=== PATIENT | female | born 2000 | race Caucasian/White ===

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

== ENCOUNTER → 2019-01-25 08:36 | Outpatient (CLI) | payer MEDICAID, SELFPAY ==
--- NOTE | 2019-01-25 08:45 | FL_ITS ---
FL enema w gastrografin CLINICAL INDICATION: Evaluate anatomy of the large bowel for possible colostomy ITS.REASON: SMALL BOWEL OBSTRUCTION ORDERING PHYSICIAN: Triston Shanks MD PATIENT AGE: 18 years Comparison: None Fluoroscopy time: 3 minutes and 29 seconds FINDINGS: Manager Dialysis exam demonstrates confusion, overlying the right lower quadrant. There is gaseous distention of large bowel. Enterostomy tube is present in the left upper quadrant. Gastrografin enema is performed. There is a moderate amount retained colonic feces in the right colon. No annular constricting lesions are evident. No anatomic variants are apparent. The appendix didn't fill. Atelectasis not readily identified. IMPRESSION: Moderate amount retained colonic feces otherwise unremarkable Gastrografin enema
== END ==
PROVIDERS: PCP Internal Medicine Adolescent Medicine; Visit Provider Surgery
DX: K56.609 Unspecified intestinal obstruction, unspecified as to partial versus complete obstruction (principal)
CPT/HCPCS: 74270

== ENCOUNTER → 2019-04-10 18:59 | Outpatient (CLI) | payer MEDICAID, SELFPAY ==
[2019-04-10 19:10] LABS: Adenovirus,PCR Not Detected (NotDetected); Bordetella Pertussis Not Detected (NotDetected); Chlamydophila Pneumoniae, PCR Not Detected (NotDetected); Coronavirus 229E Not Detected (NotDetected); Coronavirus NL63 Not Detected (NotDetected); Coronavirus OC43 Not Detected (NotDetected); Coronovirus HKU1,PCR Not Detected (NotDetected); Human Metapneumovirus Not Detected (NotDetected); Influenza A, PCR Not Detected (NotDetected); Influenza AH1, 2009 Not Detected (NotDetected); Influenza AH1, PCR Not Detected (NotDetected); Influenza AH3,PCR Not Detected (NotDetected); Influenza B, PCR Not Detected (NotDetected); Mycoplasma Pneumoniae, PCR Not Detected (NotDetected); Parainfluenza 1, PCR Not Detected (NotDetected); Parainfluenza 2, PCR Not Detected (NotDetected); Parainfluenza 3, PCR Not Detected (NotDetected); Parainfluenza 4, PCR Not Detected (NotDetected); Respiratory Syncytial Virus Not Detected (NotDetected)
[2019-04-10 20:37] LABS: Rhinovirus/Enterovirus Detected (NotDetected)
== END ==
PROVIDERS: PCP Nurse Practitioner Family; Visit Provider Nurse Practitioner Family
DX: R50.9 Fever, unspecified (principal); R05 Cough
CPT/HCPCS: 87486; 87581; 87633; 87798

== ENCOUNTER → 2019-07-27 07:38 | Outpatient (CLI) | payer MEDICAID, SELFPAY ==
[2019-07-27 07:44] LABS: Microscopic, Urine URINE MICROSCOPIC (MICROSCOPIC)
[2019-07-27 08:48] LABS: Appearance,Urine CLEAR (Clear); Bilirubin,Urine Negative (Negative); Blood, Urine 3+ (Negative); Color,Urine YELLOW (Yellow); Glucose,Urine (UA) Negative (Negative); Ketones,Urine Negative (Negative); Leukocyte Esterase,Urine 2+ (Negative); Nitrate,Urine POSITIVE (Negative); Protein,Urine 2+ (Negative); Specific Gravity, Urine 1.025 (1.005-1.030); Urobilinogen,Urine 0.2 EU/dl (0.2)
[2019-07-27 09:05] LABS: WBC,Urine 20-50 #/hpf (0-3)
[2019-07-27 09:06] LABS: Bacteria,Urine 3+ /lpf
== END ==
PROVIDERS: Visit Provider Nurse Practitioner Family
DX: N31.9 Neuromuscular dysfunction of bladder, unspecified (principal); R50.9 Fever, unspecified
CPT/HCPCS: 81001; 87086; 87088; 87186

== ENCOUNTER → 2020-05-03 08:04 | Outpatient (CLI) | payer MEDICAID, SELFPAY ==
--- NOTE | 2020-05-03 08:14 | XR_ITS ---
PROCEDURE: XR KUB CLINICAL INDICATION: CONSTIPATION COMPARISON: BEG FL enema w gastrografin from 01/25/2019 FINDINGS: There is lumbar scoliosis convex right. Pain pump overlies the right lower quadrant. Bowel gas pattern is nonspecific with gas-filled loops of small and large bowel. Suture line is present in the right mid abdominal region. There is a thin linear metallic density in the left mid abdominal area. There is increased soft tissue density overlying the pelvis and may be related to distended urinary bladder. Left lower quadrant ostomy is noted IMPRESSION: Scoliosis with nonspecific bowel gas pattern Dictated by: Yousuf Nguyen MD 05/03/2020 15:13 Electronically signed by Yousuf Nguyen MD in [place] 05/03/2020 15:13
== END ==
PROVIDERS: PCP Internal Medicine Adolescent Medicine; Visit Provider Surgery
DX: K59.00 Constipation, unspecified (principal)
CPT/HCPCS: 74018

== ENCOUNTER 2020-08-24 18:32 | Inpatient (IN) | payer MEDICAID, SELFPAY ==
[2020-08-24] VITALS (8 sets, daily range): BP systolic 89–128; BP diastolic 54–78; PULSE 88–129; RESP 16–19; TEMP 36.7–38.3; O2SAT 93–96; BMI 18.4
[2020-08-24 19:32] LABS: Basophils # 0.1 K/mm3 (0-0.2); Basophils % 1.4 % (0.1-2.0); Eosinophils % 0.3 % (0.1-12.0); Hematocrit 45.9 % (37.0-47.0); Hemoglobin 15.1 g/dL (12.2-16.2); Lymphocytes # 0.9 K/mm3 (0.7-4.5); Lymphocytes % 11.4 % (10-50); Mean Corpuscular HGB Conc 32.8 g/dL (31.8-35.4); Mean Corpuscular Hemoglobin 29.2 pg (27.0-31.2); Mean Corpuscular Volume 88.9 fl (81-99); Mean Platelet Volume 9.5 fl (7.4-10.4); Monocytes # 0.8 K/mm3 (0.1-1.0); Monocytes % 10.4 % (1.7-9.3); Neutrophils # 5.8 K/mm3 (1.8-7.8); Neutrophils % 76.6 % (37.0-80.0); Platelet Count 185 K/mm3 (142-424); Red Blood Count 5.16 M/mm3 (4.20-5.40); Red Cell Distribution Width 14.4 % (11.5-17.5); White Blood Count 7.5 K/mm3 (4.8-10.8)
--- NOTE | 2020-08-24 19:32 | XR_ITS ---
PROCEDURE: XR CHEST PORTABLE Referring Doctor: Stone Ibrahim Patient Age:20Y CLINICAL HISTORY: cough patient diagnosed with covid, a few days ago and has been vomiting. Mother questions that she may have aspirated vomitus COMPARISON: CR CXR CHEST(2 VIEWS-NOT PORTABLE) from 06/06/2015 CR CXR1 CHEST-PORTABLE from 09/23/2015 CR CXR2V XR chest 2V from 10/17/2018 FINDINGS: AP portable semi-erect chest performed today and compared to October 2018 CXr two-view. The patient has a diffuse gradual dextroscoliosis through the thoracic spine and into the lumbar spine which is somewhat distorts the chest and dimensions the volume of the left hemithorax. Airspace disease medial left base.: Minimal infiltrate and atelectasis at the left lung base,, retrocardiac region. The infiltrate likely extends from the left infrahilar region towards medial left base. But does not significantly obscure the left hemidiaphragm I would note the patient has had chronic changes and some scarring in this area in the past but I am suspect of minimal additional infiltrate currently medial left base left upper lung field appears clear. Suspect subtle infiltrate at the medial right lung base as well. Appearance today is unchanged since previous studies . A prominent gastric bubble with slight elevation left hemidiaphragm reflecting the additional atelectasis at the left lung base today IMPRESSION: bibasilar infiltrate and atelectasis Minimal infiltrate medial right lung base Infiltrate and atelectasis and scarring at the medial left lung base the Dictated by: Percy Ruiz MD 08/24/2020 21:58 Percy Ruiz MD in [place] 08/24/2020 21:58
[2020-08-24 19:37] LABS: Alanine Aminotransferase 72 U/L (12-78); Albumin Level 4.8 g/dl (3.5-5.0); Albumin/Globulin Ratio 1.3 (1.1-1.8); Alkaline Phosphatase 77 U/L (38-126); Anion Gap 15.2 mEq/L (5-15); Aspartate Amino Transferase 35 U/L (14-36); Bilirubin,Total 0.6 mg/dl (0.2-1.3); Blood Urea Nitrogen 14 mg/dl (7-17); Calcium 9.8 mg/dl (8.4-10.2); Carbon Dioxide 28 mmol/L (22.0-30.0); Chloride 99 mmol/L (98-107); Creatinine Clearance Estimated 159 mL/min (50-200); Estimated Glomerular Filt Rate 156 ml/min (>60); GFR (African American) 188 ML/MIN (>60); Globulin 3.7 g/dL (1.3-3.2); Glucose 117 mg/dl (74-100); Potassium 4.2 mmoL/L (3.5-5.1); Sodium 138 mmol/L (136-145); Total Protein,Serum 8.5 g/dl (6.3-8.2)
[2020-08-24 19:47] LABS: Microscopic, Urine URINE MICROSCOPIC (MICROSCOPIC)
--- NOTE | 2020-08-24 19:53 | HMH.EDGENADL ---
ED Disposition Clinical Impression: Pneumonia Disposition: Admitted As Inpatient Condition on Discharge: Serious Instructions: DI for Diarrhea and Traveler's Diarrhea -- Adult, DI for Diarrhea and Traveler's Diarrhea -- Child, DI for Nausea -- Adult, DI for Nausea -- Child Referrals: Mike Welsh MD [Primary Care Provider] - - Critical Care Critical Care Time: No Attestation: On 08/24/20, the high probability of a clinically significant, sudden or life threatening deterioration of the following system(s) required my full and direct attention, intervention and personal management. The time I documented below is in addition to time spent performing reported procedures but includes the following listed in this critical care notation. Medical Decision Making - Medical Records Medical records reviewed: Yes: I reviewed the patient's medical records. - [place] Inquiry Pt receiving controlled substance: No Vital Signs: 08/24/20 18:32 Temperature 100.9 F H Temperature Source Axillary Pulse Rate [Left Radial] 129 H Respiratory Rate 19 Blood Pressure [Right Arm] 128/78 Blood Pressure Mean [Right Arm] 94 Blood Pressure Source [Right Arm] Automatic Cuff Blood Pressure Position [Right Arm] Sitting 02 Sat by Pulse Oximetry 96 Oxygen Delivery Method Room Air - Lab Data Lab Results 08/24/20 19:00: WBC 7.5, RBC 5.16, Hgb 15.1, Hct 45.9, MCV 88.9, MCH 29.2, MCHC 32.8, RDW 14.4, Plt Count 185, MPV 9.5, Neut % (Auto) 76.6, Lymph % (Auto) 11.4, [place] % (Auto) 10.4 H, Eos % (Auto) 0.3, Baso % (Auto) 1.4, Neut # (Auto) 5.8, Lymph # (Auto) 0.9, [place] # (Auto) 0.8, Eos # (Auto) 0.0, Baso # (Auto) 0.1 08/24/20 19:00: Sodium 138, Potassium 4.2, Chloride 99, Carbon Dioxide 28, Anion Gap 15.2 H, BUN 14, Creatinine 0.50 L, Estimated Creat Clear 159, Estimated GFR 156, Est GFR ( Amer) 188, Glucose 117 H, Calcium 9.8, Total Bilirubin 0.6, AST 35, ALT 72, Alkaline Phosphatase 77, Total Protein 8.5 H, Albumin 4.8, Globulin 3.7 H, Albumin/Globulin Ratio 1.3, HCG, Quant < 2 08/24/20 19:43: Urine Color Yellow, Urine Appearance Clear, Urine pH 7.0, Ur Specific [place] 1.020, Urine Protein Negative, Urine Glucose (UA) Negative, Urine Ketones Negative, Urine Blood Negative, Urine Nitrate Negative, Urine Bilirubin Negative, Urine Urobilinogen 0.2, Ur Leukocyte Esterase Negative, Urine RBC Occasional, Urine WBC 3-5, Ur Squamous Epith Cells 5-10, Urine Mucus 4+ Result diagrams: 08/24/20 19:00 08/24/20 19:00 Orders (Tests/Meds): ED MEDICATIONS Generic Name Dose Route Start Last Admin Trade Name Freq PRN Reason Stop Dose Admin Azithromycin 500 mg/ Sodium 250 mls @ 250 mls/hr 08/24/20 20:00 08/24/20 20:01 Chloride IV 09/07/20 19:59 250 mls/hr Q24H SVETLANA Administration Protocol Ceftriaxone Sodium 1 gm/ 50 mls @ 100 mls/hr 08/24/20 20:00 08/24/20 20:01 Sodium Chloride IV 09/07/20 19:59 100 mls/hr Q24H SVETLANA Administration Protocol Discontinued Medications Generic Name Dose Route Start Last Admin Trade Name Freq PRN Reason Stop Dose Admin Acetaminophen 1,000 mg 08/24/20 18:56 08/24/20 19:32 Acetaminophen 500mg Tab PO 08/24/20 18:57 1,000 mg ONCE ONE Administration Ibuprofen 400 mg 08/24/20 18:56 08/24/20 19:32 Ibuprofen 400 Mg Tablet PO 08/24/20 18:57 400 mg ONCE ONE Administration Ondansetron HCl 4 mg 08/24/20 19:52 08/24/20 19:59 Ondansetron 4mg/2ml Vial IV 08/24/20 19:53 4 mg ONCE ONE Administration ORDERS Category Date Time Status CXR --portable [XR chest portable] Stat Exams 08/24/20 19:32 Taken Full Resp Panel w/COVID ([facility]) Routine Lab 08/24/20 19:00 Received Blood Culture Stat Micro 08/24/20 19:29 Ordered Medical Decision Narrative: Patient is a 20-year-old female with significant TBI presents the emergency department today with vomiting and fever. Belly soft. Given multiple Covid positive sick contacts at home this is the most likely etiology. P
[2020-08-24 20:01] LABS: HCG,Quantitative < 2 mIU/ml (0-5.42)
[2020-08-24 20:04] LABS: Appearance,Urine CLEAR (Clear); Bilirubin,Urine Negative (Negative); Blood, Urine Negative (Negative); Color,Urine YELLOW (Yellow); Glucose,Urine (UA) Negative (Negative); Ketones,Urine Negative (Negative); Leukocyte Esterase,Urine Negative (Negative); Nitrate,Urine Negative (Negative); Protein,Urine Negative (Negative); Urobilinogen,Urine 0.2 EU/dl (0.2)
[2020-08-24 20:06] LABS: Mucus,Urine 4+ /lpf; RBC,Urine Occasional #/hpf (0-3)
[2020-08-24 21:02] LABS: Coronavirus 19, PCR Detected (NotDetected)
[2020-08-24 22:22] LABS: Adenovirus,PCR Not Detected (NotDetected); Coronavirus NL63 Not Detected (NotDetected); Coronovirus HKU1,PCR Not Detected (NotDetected)
[2020-08-24 22:23] LABS: Bordetella Pertussis Not Detected (NotDetected); Chlamydophila Pneumoniae, PCR Not Detected (NotDetected); Coronavirus 229E Not Detected (NotDetected); Coronavirus OC43 Not Detected (NotDetected); Human Metapneumovirus Not Detected (NotDetected); Influenza A, PCR Not Detected (NotDetected); Influenza AH1, 2009 Not Detected (NotDetected); Influenza AH1, PCR Not Detected (NotDetected); Influenza AH3,PCR Not Detected (NotDetected); Influenza B, PCR Not Detected (NotDetected); Parainfluenza 1, PCR Not Detected (NotDetected); Parainfluenza 2, PCR Not Detected (NotDetected); Parainfluenza 3, PCR Not Detected (NotDetected); Parainfluenza 4, PCR Not Detected (NotDetected); Respiratory Syncytial Virus Not Detected (NotDetected); Rhinovirus/Enterovirus Not Detected (NotDetected)
--- NOTE | 2020-08-25 03:48 | PC.NURSE ---
Pt admitted this shit. Pt has slept well since admission. No nonverbal s/sx of soa/pain/distress noted. No vomiting. Colostomy emptied with 70 ml of liquid stool noted. Lactated Ringers continue at 95 ml/hr per Dr. Welsh.
[2020-08-25 04:00] VITALS: BP 91/59; PULSE 78; RESP 17; TEMP 36.6; O2SAT 93
[2020-08-25 06:15] LABS: Basophils % 0.7 % (0.1-2.0); Eosinophils % 0.8 % (0.1-12.0); Hematocrit 41.5 % (37.0-47.0); Lymphocytes # 1.3 K/mm3 (0.7-4.5); Mean Corpuscular HGB Conc 32.6 g/dL (31.8-35.4); Mean Corpuscular Hemoglobin 29.5 pg (27.0-31.2); Mean Corpuscular Volume 90.3 fl (81-99); Mean Platelet Volume 9.2 fl (7.4-10.4); Monocytes # 0.6 K/mm3 (0.1-1.0); Monocytes % 14.3 % (1.7-9.3); Neutrophils # 2.2 K/mm3 (1.8-7.8); Neutrophils % 53.3 % (37.0-80.0); Platelet Count 152 K/mm3 (142-424); Red Blood Count 4.59 M/mm3 (4.20-5.40); Red Cell Distribution Width 14.4 % (11.5-17.5); White Blood Count 4.2 K/mm3 (4.8-10.8)
[2020-08-25 06:17] LABS: Hemoglobin 13.5 g/dL (12.2-16.2)
[2020-08-25 06:26] LABS: Anion Gap 11.9 mEq/L (5-15); Blood Urea Nitrogen 11 mg/dl (7-17); Calcium 9.1 mg/dl (8.4-10.2); Carbon Dioxide 30 mmol/L (22.0-30.0); Chloride 104 mmol/L (98-107); Creatinine Clearance Estimated 215 mL/min (50-200); Estimated Glomerular Filt Rate 201 ml/min (>60); GFR (African American) 244 ML/MIN (>60); Glucose 94 mg/dl (74-100); Potassium 3.9 mmoL/L (3.5-5.1); Sodium 142 mmol/L (136-145)
[2020-08-25 07:44] VITALS: BP 102/69; PULSE 74; RESP 16; TEMP 36.6; O2SAT 94
[2020-08-25 08:00] VITALS: RESP 16; O2SAT 95
--- NOTE | 2020-08-25 09:11 | HMH.HP ---
*Admission Date: 08/24/20 *Chief complaint: Vomiting, febrile *History of present illness: Mariela is a 20-year-old female well-known to our office in the outpatient setting with significant history of traumatic brain injury, G-tube dependence, bedbound, arthrogryposis, seizure disorder. She was brought to the ER last night after consultation with primary care. Patient has been having vomiting x2 over the past 24 hours. This is novel for her as she never vomits. She additionally has been running tachycardic and had slight elevation in body temperature. Of note, mom and younger sisters have all tested positive for COVID-19. Upon arrival to the ER, she was assessed for bowel obstruction, pneumonia, COVID-19. Found to be positive for COVID-19. No concern for bowel obstruction given gas pattern on imaging and passing gas from her colostomy. She had a slight fever, but labs otherwise within normal limits. Chest x-ray unremarkable for infiltrates versus atelectasis. No respiratory distress, stable on room air. Normotensive. Patient was admitted to isolation because of feeding intolerance, COVID-19 positive, and high risk for decompensation. On assessment this morning, she is afebrile, normotensive. Heart rate improved with fluid resuscitation. Still remains NPO. Stable on ambient air with saturations in the high 90s. Patient reportedly did well overnight with no concerns from nursing. Noted to have colostomy output of both gas and stool. Voiding independently (incontinent). No family at bedside, however spoke to mom after rounds and updated her on patient status and plan. [facility] History I have reviewed the patient's past medical history: Yes (Per chart and discussion with caregiver) Medical History: Reports:: Seizures Denies:: Diabetes Mellitus Type 1, Diabetes Mellitus Type 2 *Have you ever received a pneumonia vaccine?: Yes *Have you received a flu vaccine this season?: Yes Other Surgeries: Yes: Colostomy - *Social History Smoking Status: Never smoker Alcohol Intake: never *Occupational Status:: disabled Household Members: family *Travel in the last 8 weeks: None Family Hx:: No significant family history Review of Systems - Review of Systems Review of systems:: pertinent systems reviewed and negative unless documented below (14 point review of systems performed, pertinent positives and negatives as per HPI, obtained from mother) Meds Home Medications Medication Instructions Recorded Confirmed Type Glycopyrrolate 2 mg G-TUBE BID 10/19/18 08/24/20 History Levothyroxine Sodium 62.5 mcg G-TUBE DAILY 10/19/18 08/24/20 History [Levothyroxine 125mcg (0.125mg) Tab] Melatonin/Pyridoxine HCl (B6) 1 each G-TUBE HS 10/19/18 08/25/20 History [Melatonin 10 mg Tablet] Venlafaxine HCl [Venlafaxine HCl 37.5 mg G-TUBE BID 10/19/18 08/24/20 History ER] levETIRAcetam [Levetiracetam] 1,000 mg G-TUBE BID 10/19/18 08/25/20 History Multivit-Min/Iron/Folic/Lutein 1 each PO DAILY 08/24/20 08/24/20 History [Multivitamin Women 50 Plus Tab] clonazePAM [Clonazepam] 0.5 mg PO BID 08/24/20 08/24/20 History Allergies Allergy/AdvReac Type Severity Reaction Status Date / Time No Known Allergies Allergy Verified 10/19/18 09:37 Exam Vital signs and Labs for Last 24 Hours: Temp Pulse Resp BP Pulse Ox 97.8 F 74 16 102/69 L 94 L 08/25/20 07:44 08/25/20 07:44 08/25/20 07:44 08/25/20 07:44 08/25/20 07:44 Laboratory Results - last 24 hr 08/24/20 19:00: WBC 7.5, RBC 5.16, Hgb 15.1, Hct 45.9, MCV 88.9, MCH 29.2, MCHC 32.8, RDW 14.4, Plt Count 185, MPV 9.5, Neut % (Auto) 76.6, Lymph % (Auto) 11.4, [place] % (Auto) 10.4 H, Eos % (Auto) 0.3, Baso % (Auto) 1.4, Neut # (Auto) 5.8, Lymph # (Auto) 0.9, [place] # (Auto) 0.8, Eos # (Auto) 0.0, Baso # (Auto) 0.1 08/24/20 19:00: Sodium 138, Potassium 4.2, Chloride 99, Carbon Dioxide 28, Anion Gap 15.2 H, BUN 14, Creatinine 0.50 L, Estimated Creat Clear 159, Estimated GFR 156, Est GFR (Afri
[2020-08-25 11:42] VITALS: BP 107/71; PULSE 86; RESP 20; TEMP 36.5; O2SAT 96
[2020-08-25 11:46] LABS: C-Reactive Protein 39.3 mg/L (0-4)
[2020-08-25 11:59] LABS: Procalcitonin 0.052 ng/mL (0.0-2.0)
--- NOTE | 2020-08-25 15:07 | P.CONPHA_ITS ---
[facility] Pharm[facility] VTE Monitoring - Patient Demographics Admission date: 08/25/20 Report Date: 08/25/20 Time: 15:07 Allergies/Adverse Reactions: Patient Allergies No Known Allergies Allergy (Verified 10/19/18 09:37) Height: 1.75 m Weight: 61.292 kg Patient Problems: Current Active Problems Pneumonia (Acute) COVID-19 (Acute) Seizure disorder (Chronic) History of traumatic brain injury (Chronic) Hypothyroid (Chronic) Feeding intolerance (Acute) - VTE Risk Labs: VTE Related Lab Results Hgb 13.5 g/dL (12.2-16.2) D 08/25/20 05:40 Hct 41.5 % (37.0-47.0) 08/25/20 05:40 Plt Count 152 K/mm3 (142-424) 08/25/20 05:40 BUN 11 mg/dl (7-17) 08/25/20 05:40 Creatinine 0.40 mg/dl (0.52-1.04) L 08/25/20 05:40 Estimated Creat Clear 215 mL/min (50-200) 08/25/20 05:40 Was VTE Risk Assessment Performed: Yes VTE Score: 1 - Prophylaxis Types of VTE Prophylaxis: Pharmacological Location of Applied Device: Bilateral Lower Extremeties Pharmacologic Type: Enoxaparin
[2020-08-25 15:54] VITALS: BP 112/82; PULSE 84; RESP 20; TEMP 36.4; O2SAT 98
--- NOTE | 2020-08-25 16:22 | PC.NURSE ---
Pt awake entire shift. Is unresponsive and total care patient, this is pt's baseline. Requires turning and repositioning Q2H. Pt is contracted and pillows are placed for comfort. Skin is intact. Colostomy bag w/ liquid stool present, stoma pink. Bag has been burped and pt has had about 150 cc of stool out this shift. G-tube present as well to abdomen. Tube feeds initiated @ [address] Welsh's orders. Jevity 1.0 currently running @ 20 mls/hr. Pt tolerating well. No s/s of gastric upset, no vomiting this shift. IV zofran was given prior to starting of tube feeds. Pt is incontinent of bladder, attends changed as needed. Pure wick has been put into place this afternoon to aid w/ accurate I/O's. Lungs diminished upon auscultation, pt moves very little air. No cough noted. Remains on room air. Oral care provided Q2H and suctioning performed as well. HOB maintained @ 40 degrees for aspiration prevention. Receiving lovenox for VTE prophylaxis. Pt's mother has called twice today, she has been updated on pt's current plan of care. Pt remains afebrile and shows no s/s of resp distress. Bed alarm in place for pt's safety. Call toscano w/in reach. Room cleaned this shift by this nurse.
--- NOTE | 2020-08-25 18:10 | PC.NURSE ---
Family facetimed w/ patient at this time w/ assistance of this nurse.
[2020-08-25 20:00] VITALS: BP 139/95; PULSE 110; RESP 18; TEMP 36.6; O2SAT 93
[2020-08-26] VITALS (7 sets, daily range): BP systolic 99–134; BP diastolic 69–78; PULSE 64–94; RESP 17–20; TEMP 36.6–38.4; O2SAT 92–97; BMI 20.1; BMI 20.2
--- NOTE | 2020-08-26 00:03 | PC.NURSE ---
gastric residual: 35 ml; increased feeding rate to 40 ml/hr with 120ml flush. stoma pink with no drainage noted.
[2020-08-26 05:42] LABS: Basophils % 0.3 % (0.1-2.0); Hematocrit 39.2 % (37.0-47.0); Lymphocytes # 0.7 K/mm3 (0.7-4.5); Lymphocytes % 9.3 % (10-50); Mean Corpuscular HGB Conc 33.3 g/dL (31.8-35.4); Mean Corpuscular Hemoglobin 29.2 pg (27.0-31.2); Mean Corpuscular Volume 87.7 fl (81-99); Mean Platelet Volume 9.8 fl (7.4-10.4); Monocytes # 0.5 K/mm3 (0.1-1.0); Monocytes % 6.7 % (1.7-9.3); Neutrophils # 6.6 K/mm3 (1.8-7.8); Neutrophils % 83.6 % (37.0-80.0); Platelet Count 154 K/mm3 (142-424); Red Blood Count 4.46 M/mm3 (4.20-5.40); Red Cell Distribution Width 14.3 % (11.5-17.5); White Blood Count 7.9 K/mm3 (4.8-10.8)
[2020-08-26 05:48] LABS: Chloride 102 mmol/L (98-107)
[2020-08-26 05:49] LABS: Potassium 3.4 mmoL/L (3.5-5.1); Sodium 140 mmol/L (136-145)
[2020-08-26 05:51] LABS: Alanine Aminotransferase 70 U/L (12-78); Albumin Level 4.3 g/dl (3.5-5.0); Albumin/Globulin Ratio 1.5 (1.1-1.8); Alkaline Phosphatase 60 U/L (38-126); Anion Gap 13.4 mEq/L (5-15); Aspartate Amino Transferase 37 U/L (14-36); Bilirubin,Total 0.3 mg/dl (0.2-1.3); Blood Urea Nitrogen 12 mg/dl (7-17); Carbon Dioxide 28 mmol/L (22.0-30.0); Creatinine Clearance Estimated 215 mL/min (50-200); Estimated Glomerular Filt Rate 201 ml/min (>60); GFR (African American) 244 ML/MIN (>60); Globulin 2.8 g/dL (1.3-3.2); Total Protein,Serum 7.1 g/dl (6.3-8.2)
[2020-08-26 05:52] LABS: Calcium 8.8 mg/dl (8.4-10.2); Magnesium 1.7 mg/dl (1.6-2.3)
--- NOTE | 2020-08-26 05:57 | PC.NURSE ---
PT. NONVERBAL; FEVER NOTED THIS SHIFT; ADMINISTERED TYLENOL PER MAR. GASTRIC RESIDUAL 35 ML; INCREASED RATE TO 50 ML/HR. PT. BATHED AT THIS TIME.
[2020-08-26 06:00] LABS: Glucose 121 mg/dl (74-100)
--- NOTE | 2020-08-26 07:53 | DIET.NUTRFU ---
Addendum entered by Lashonda Perez 08/26/20 09:38: Do not mix TF. Separately administer 10ml pedialyte q 6 hours (40ml/day) NaCl not indicated, do not give. Edited order: Initiate tube feeding regimen of Osmolite 1.2 at 30ml/hr and increase by 10ml/hr q 8 hours as tolerated to goal rate of 54ml/hr. Administer 10ml pedialyte q 6 hours. Irrigate tube/give meds with minimal 60ml water flushes. Additional fluid needs are met through formula and IVF, will monitor IVF and adjust as indicated. Original Note: Nutritional consult completed. Pt with acute feeding intolerance is on high hydration and protein/low residue formula at home. Recommend most nutritionally similar formula available at [facility], Osmolite 1.2. Pt uses added 1/2 tsp NaCl and 40ml Pedialyte mixed into formula, recommend this as well. Pt with good toleration Jevity 1.0 at 50ml/hr. Recommend transitioning to new formula with moderate rate decrease, to be slowly increased today. Initiate tube feeding regimen of Osmolite 1.2 with added hydration (1422ml formula mixed with 1/2tsp NaCl and 40ml pedialyte) at 30ml/hr and increase by 10ml/hr q 8 hours as tolerated to goal rate of 54ml/hr. Irrigate tube/give meds with minimal 60ml water flushes. Additional fluid needs are met through formula and IVF, will monitor IVF and adjust as indicated.
--- NOTE | 2020-08-26 08:00 | PC.NURSE ---
Gastric residual 0mL
--- NOTE | 2020-08-26 12:00 | PC.NURSE ---
Gastric residual 0mL @ 1200
--- NOTE | 2020-08-26 13:49 | HMH.ACPN2 ---
Internal Medicine - PN: Subj *Date: 08/26/20 *Time: 13:50 Interval history: Overall patient did fairly well overnight. Did have a fever early this morning. Responded to bathing. Slept most of the morning. Tube feeds seem to be infusing well through G-tube Exam Vital signs and Labs for Last 24 Hours: Temp Pulse Resp BP Pulse Ox 97.9 F 94 H 18 99/69 L 96 08/26/20 08:00 08/26/20 08:00 08/26/20 08:00 08/26/20 08:00 08/26/20 08:00 Laboratory Results - last 24 hr 08/26/20 05:00: WBC 7.9 D, RBC 4.46, Hgb 13.0, Hct 39.2, MCV 87.7, MCH 29.2, MCHC 33.3, RDW 14.3, Plt Count 154, MPV 9.8, Neut % (Auto) 83.6 H, Lymph % (Auto) 9.3 L, [place] % (Auto) 6.7, Eos % (Auto) 0.0 L, Baso % (Auto) 0.3, Neut # (Auto) 6.6, Lymph # (Auto) 0.7, [place] # (Auto) 0.5, Eos # (Auto) 0.0, Baso # (Auto) 0.0 08/26/20 05:00: Sodium 140, Potassium 3.4 L, Chloride 102, Carbon Dioxide 28, Anion Gap 13.4, BUN 12, Creatinine 0.40 L, Estimated Creat Clear 215, Estimated GFR 201, Est GFR ( Amer) 244, Glucose 121 H D, Calcium 8.8, Phosphorus 3.0, Magnesium 1.7, Total Bilirubin 0.3, AST 37 H, ALT 70, Alkaline Phosphatase 60, C-Reactive Protein 27.0 H D, Total Protein 7.1, Albumin 4.3 D, Globulin 2.8, Albumin/Globulin Ratio 1.5 I & O for Last 24 hours: Intake & Output 08/24/20 08/25/20 08/26/20 08/27/20 11:59 11:59 11:59 11:59 Intake Total 300 / 300 4030 / 4030 Output Total 70 / 70 1000 / 1000 Balance 230 / 230 3030 / 3030 Weight 135 lb 2 oz 136 lb 1 oz Narrative: Patient is awake, responds with deep breathing. Nonverbal as usual. Skin turgor seems slightly poor compared to baseline. Anterior lung maldonado are clear. Heart rate regular. G-tube site looks good. Abdomen is not distended. Normal bowel sounds. Neurologic and musculoskeletal deficits as previously noted. Distal feet and hands are warm and well-perfused. Assessment and Plan (1) COVID-19 Status: Acute Category: Medical Code(s): U07.1 - COVID-19 (2) Seizure disorder Status: Chronic Category: Medical Code(s): G40.909 - Epilepsy, unspecified, not intractable, without status epilepticus (3) History of traumatic brain injury Status: Chronic Category: Medical Code(s): Z87.820 - Personal history of traumatic brain injury (4) Hypothyroid Status: Chronic Category: Medical Code(s): E03.9 - Hypothyroidism, unspecified (5) Feeding intolerance Status: Acute Category: Medical Code(s): R63.3 - Feeding difficulties - Assessment and plan all Dx Assessment and Plan for all problems:: Continue to transition feedings back to home. Given febrile status and high risk of dehydration we will continue to watch patient for a couple more days.
--- NOTE | 2020-08-26 14:12 | PC.NURSE ---
pt voiding per yuewifelicia
--- NOTE | 2020-08-26 15:49 | PC.NURSE ---
took iPad in pt's room to jean with mom
--- NOTE | 2020-08-26 16:00 | PC.NURSE ---
gastric residual 0mL
--- NOTE | 2020-08-26 18:00 | PC.NURSE ---
increased tubefeed rate to 40mL/hr. Goal rate is 54mL/hr.
--- NOTE | 2020-08-26 20:30 | PC.NURSE ---
Gastric residual noted 0 ml @ 2030.
--- NOTE | 2020-08-26 21:42 | PC.NURSE ---
Pt bathed at this time due to urine incontinence. New purwick applied between legs. Colostomy maintained. Stoma noted pink. Q2H turn per staff.
--- NOTE | 2020-08-26 22:56 | PC.NURSE ---
Spoke with pt's mother at this time. Obtained phone consent for a picture to be obtained of left foot. Blister noted to left foot laterally.
[2020-08-27] VITALS (7 sets, daily range): BP systolic 105–125; BP diastolic 69–84; PULSE 94–109; RESP 16–20; TEMP 36.6–37.3; O2SAT 95–100; BMI 20.6
--- NOTE | 2020-08-27 00:15 | PC.NURSE ---
Seizure pads placed on bed at this time.
--- NOTE | 2020-08-27 00:21 | PC.NURSE ---
Gastric residual noted at 5 ml @0020. Increased tube feedings to 50 ml/hr. Pt tolerating well. No signs n/v.
--- NOTE | 2020-08-27 04:57 | PC.NURSE ---
Two fluid filled blisters noted to left foot. 1 cm x 0.5 cm and 2 cm and 1.5 cm. Small fluid filled blister noted to 5th digit on left foot. 1 cm x 1 cm. Small fluid filled blister noted to 4th digit on left foot. 0.5 cm and 1 cm.
--- NOTE | 2020-08-27 06:16 | PC.NURSE ---
Gastric residual noted at 5 ml @ 0600. Flushed with 120 ml water. Tolerated tube feedings well. Increased to 60 ml/hr.
--- NOTE | 2020-08-27 06:26 | PC.NURSE ---
Addendum entered by Odalys Mueller RN 08/27/20 07:06: *54 ml/hr goal Original Note: Pt rested well with eyes closed this shift. No acute changes noted from previous shift. No changes noted from previous assessment. Tolerated RA well with no SOA or cough noted. Tolerated tube feedings well. Goal met this am at 60 ml/hr rate of infusion. No signs of n/v. Colostomy burped at least every hour if not every two. Pt noted with flatulence this shift. Q2H turn per staff. Refused oral care for majority of shift. Pt remains incontinent of bowel and bladder. Purwick in place. Blood noted to purwick from vaginal region, possible menstrual cycle noted. HOB remains elevated at least 30 degrees t/o shift. Elevated BLE with pillows, floated left heel from mattress due to blisters. VSS. Pt remains afebrile. Remains safe with seizure precautions in place. Will continue to monitor.
[2020-08-27 06:43] LABS: Chloride 102 mmol/L (98-107); Potassium 3.7 mmoL/L (3.5-5.1); Sodium 143 mmol/L (136-145)
[2020-08-27 06:45] LABS: Alanine Aminotransferase 66 U/L (12-78); Alkaline Phosphatase 52 U/L (38-126); Anion Gap 8.7 mEq/L (5-15); Aspartate Amino Transferase 51 U/L (14-36); Basophils % 0.5 % (0.1-2.0); Bilirubin,Total 0.3 mg/dl (0.2-1.3); Blood Urea Nitrogen 4 mg/dl (7-17); Carbon Dioxide 36 mmol/L (22.0-30.0); Creatinine Clearance Estimated 222 mL/min (50-200); Eosinophils % 0.4 % (0.1-12.0); Estimated Glomerular Filt Rate 201 ml/min (>60); GFR (African American) 244 ML/MIN (>60); Hematocrit 41.2 % (37.0-47.0); Hemoglobin 13.9 g/dL (12.2-16.2); Lymphocytes # 1.4 K/mm3 (0.7-4.5); Lymphocytes % 33.4 % (10-50); Mean Corpuscular HGB Conc 33.9 g/dL (31.8-35.4); Mean Corpuscular Hemoglobin 30.1 pg (27.0-31.2); Mean Corpuscular Volume 88.9 fl (81-99); Mean Platelet Volume 9.3 fl (7.4-10.4); Monocytes # 0.4 K/mm3 (0.1-1.0); Monocytes % 10.7 % (1.7-9.3); Neutrophils # 2.3 K/mm3 (1.8-7.8); Neutrophils % 55.1 % (37.0-80.0); Platelet Count 134 K/mm3 (142-424); Red Blood Count 4.63 M/mm3 (4.20-5.40); Red Cell Distribution Width 14.5 % (11.5-17.5); White Blood Count 4.2 K/mm3 (4.8-10.8)
[2020-08-27 06:46] LABS: Albumin Level 3.7 g/dl (3.5-5.0); Albumin/Globulin Ratio 1.2 (1.1-1.8); Calcium 8.6 mg/dl (8.4-10.2); Glucose 117 mg/dl (74-100); Total Protein,Serum 6.7 g/dl (6.3-8.2)
--- NOTE | 2020-08-27 07:41 | HMH.ACPN2 ---
Internal Medicine - PN: Subj *Date: 08/27/20 *Time: 13:15 Interval history: did well overnight. No fever overnight. Tolerating feeds. no other issues or respiratory distress. Exam Vital signs and Labs for Last 24 Hours: Temp Pulse Resp BP Pulse Ox 98.2 F 94 H 18 111/74 96 08/27/20 04:00 08/27/20 04:00 08/27/20 04:00 08/27/20 04:00 08/27/20 04:00 Laboratory Results - last 24 hr 08/27/20 05:30: WBC 4.2 L D, RBC 4.63, Hgb 13.9, Hct 41.2, MCV 88.9, MCH 30.1, MCHC 33.9, RDW 14.5, Plt Count 134 L, MPV 9.3, Neut % (Auto) 55.1, Lymph % (Auto) 33.4, Crenshaw % (Auto) 10.7 H, Eos % (Auto) 0.4, Baso % (Auto) 0.5, Neut # (Auto) 2.3, Lymph # (Auto) 1.4, Crenshaw # (Auto) 0.4, Eos # (Auto) 0.0, Baso # (Auto) 0.0 08/27/20 05:30: Sodium 143, Potassium 3.7, Chloride 102, Carbon Dioxide 36 H D, Anion Gap 8.7, BUN 4 L D, Creatinine 0.40 L, Estimated Creat Clear 222, Estimated GFR 201, Est GFR ( Amer) 244, Glucose 117 H, Calcium 8.6, Magnesium 2.0 D, Total Bilirubin 0.3, AST 51 H D, ALT 66, Alkaline Phosphatase 52, Total Protein 6.7, Albumin 3.7 D, Globulin 3.0, Albumin/Globulin Ratio 1.2 I & O for Last 24 hours: Intake & Output 08/24/20 08/25/20 08/26/20 08/27/20 23:59 23:59 23:59 23:59 Intake Total 300 / 300 1934 / 1934 3390 / 3390 1923 Output Total 70 / 70 1949 / 1950 145 / 145 Balance 230 / 230 1934 1440 / 1440 177 / 177 Weight 61.292 kg 61.292 kg 62 kg 63.106 kg Microbiology Reports for the Last 24 Hours: Microbiology 08/24/20 19:00 Blood Blood Culture - Preliminary NO GROWTH AFTER 48 HOURS 08/24/20 19:00 Blood Blood Culture - Preliminary NO GROWTH AFTER 48 HOURS Narrative: Patient is awake, responds with deep breathing. Nonverbal as usual. Skin turgor improved. Anterior lung maldonado are clear. Heart rate regular. G-tube site looks good. Abdomen is not distended. Normal bowel sounds. Colostomy with stool and gas in Neurologic and musculoskeletal deficits as previously noted. Distal feet and hands are warm and well-perfused. Blistering and mild erythema overlying heel pad on left foot and single blister at proximal fifth digit on left foot. Streaking erythema, purpura, petechiae Assessment and Plan (1) COVID-19 Status: Acute Category: Medical Code(s): U07.1 - COVID-19 (2) Seizure disorder Status: Chronic Category: Medical Code(s): G40.909 - Epilepsy, unspecified, not intractable, without status epilepticus (3) History of traumatic brain injury Status: Chronic Category: Medical Code(s): Z87.820 - Personal history of traumatic brain injury (4) Hypothyroid Status: Chronic Category: Medical Code(s): E03.9 - Hypothyroidism, unspecified (5) Feeding intolerance Status: Acute Category: Medical Code(s): R63.3 - Feeding difficulties Patient has tolerated gradual increase to goal feeds per nutrition calculation. Needs at this time are not the same rate as per home regimen however home regimen includes free water and total daily volume instead of scheduled flushes. Total volume she is tolerating on a daily basis is roughly equivalent to home regimen. No further emesis in the past 24 hours. We will continue to monitor at this time. (6) Blister of foot, left Status: Acute Category: Medical Code(s): S90.822A - Blister (nonthermal), left foot, initial encounter Unclear etiology. Blisters on heel of left foot. Concerned it may be sequela of Covid versus pressure wound however location is odd for pressure wound. We will continue to monitor. No sign of infection at this time, no indication for antibiotics. - Assessment and plan all Dx Assessment and Plan for all problems:: Old medically fragile female with COVID-19 infection. GI symptoms improving. Tolerating goal feeds. Afebrile for 24 hours. While she is clinically improving I have concerned about sending her home.
--- NOTE | 2020-08-27 08:00 | PC.NURSE ---
Checked residual. Noted at 0mL. Will continue to monitor.
--- NOTE | 2020-08-27 12:00 | PC.NURSE ---
Gave 40ml of pedialyte. Pt tolerated well. 0mL of residual volume noted.
--- NOTE | 2020-08-27 13:35 | PC.NURSE ---
Dr. Welsh at bedside. DC fluids per him.
--- NOTE | 2020-08-27 16:00 | PC.NURSE ---
Checked residual volume. 0mL noted.
--- NOTE | 2020-08-27 17:23 | PC.NURSE ---
Pt has tolerated room air well throughout shift. Respirations regular and unlabored. Lung sounds bilaterally clear. No cough noted. +2 pulses noted throughout. Active bowel sounds noted. Soft and nontender abdomen. Colostomy in place with pink stoma noted. Colostomy has been burped every 2 hours due to excessive gas. 1 large liquid BM noted. Pt has been turned q 2 hours to prevent skin breakdown. Oral care provided q 2 hours. 2 small blisters noted to back of heel on L foot and 1 small blister noted to L pinky toe. Continuous tube feeding running at 54mL/hr. Pt tolerating well. Residual volume checked q 4 hours. No nausea or vomiting present this shift. Pt has remained afebrile. Pt has facetimed with mom and aunts today. Purwick in place with clear yellow urine noted in collection device. Pt noted to be on menstrual cycle. BLE elevated with pillows throughout shift. HOB elevated atleast 30 degrees throughout shift. Seizure pads in place. Pt has remained in contact and airborne precautions throughout shift. Pt has slept on and off throughout shift. Pt is currently resting watching tv. Bed in lowest position. Call light within reach. VSS. Will continue to monitor.
[2020-08-28] VITALS: BP 113/81; PULSE 94; RESP 17; TEMP 36.6; O2SAT 96
--- NOTE | 2020-08-28 01:00 | PC.NURSE ---
on initial assessment that 2 med sized and one small blister presnt on left inner heel, directly under ankle. on assessment at midnight 1 large blister present. colostomy accumulating large amount of gas. needs freaking venting.
--- NOTE | 2020-08-28 02:42 | PC.NURSE ---
patient is resting without incident. has denied soa, nausea, vomiting, diarrhea or any pain. breath sounds remain clear, sats remain greater than 95% on r/a, no coughing noted.
[2020-08-28 04:00] VITALS: BP 107/80; PULSE 90; RESP 17; TEMP 36.6; O2SAT 96
--- NOTE | 2020-08-28 04:13 | PC.NURSE ---
patient will periodically have splotchy ed patches that come and go. during back patient exhibits a smile after joke, patient raises head while washing and combing hair. patient t also blinks for yes answer. pateint tolerated bathing without incident.
[2020-08-28 05:00] VITALS: BMI 20.4
[2020-08-28 05:28] LABS: Basophils % 0.7 % (0.1-2.0); Chloride 101 mmol/L (98-107); Eosinophils % 0.7 % (0.1-12.0); Hematocrit 42.7 % (37.0-47.0); Hemoglobin 14.3 g/dL (12.2-16.2); Lymphocytes # 1.4 K/mm3 (0.7-4.5); Lymphocytes % 31.8 % (10-50); Mean Corpuscular HGB Conc 33.5 g/dL (31.8-35.4); Mean Corpuscular Hemoglobin 30.1 pg (27.0-31.2); Mean Corpuscular Volume 89.7 fl (81-99); Mean Platelet Volume 9.3 fl (7.4-10.4); Monocytes # 0.4 K/mm3 (0.1-1.0); Monocytes % 8.5 % (1.7-9.3); Neutrophils # 2.6 K/mm3 (1.8-7.8); Neutrophils % 58.4 % (37.0-80.0); Platelet Count 138 K/mm3 (142-424); Red Blood Count 4.77 M/mm3 (4.20-5.40); Red Cell Distribution Width 14.1 % (11.5-17.5); Sodium 140 mmol/L (136-145); White Blood Count 4.4 K/mm3 (4.8-10.8)
[2020-08-28 05:29] LABS: Potassium 4.1 mmoL/L (3.5-5.1)
[2020-08-28 05:31] LABS: Blood Urea Nitrogen 8 mg/dl (7-17); Creatinine Clearance Estimated 222 mL/min (50-200); Estimated Glomerular Filt Rate 201 ml/min (>60); GFR (African American) 244 ML/MIN (>60)
[2020-08-28 05:32] LABS: Anion Gap 9.1 mEq/L (5-15); Calcium 8.8 mg/dl (8.4-10.2); Carbon Dioxide 34 mmol/L (22.0-30.0); Glucose 93 mg/dl (74-100)
[2020-08-28 08:00] VITALS: BP 110/83; PULSE 95; RESP 18; TEMP 36.8; O2SAT 100
--- NOTE | 2020-08-28 08:38 | HMH.DCSUM ---
General - General Admission date:: 08/24/20 Discharge date: 08/28/20 HPI HPI: Mariela is a 20-year-old female well-known to our office in the outpatient setting with significant history of traumatic brain injury, G-tube dependence, bedbound, arthrogryposis, seizure disorder. She was brought to the ER last night after consultation with primary care. Patient has been having vomiting x2 over the past 24 hours. This is novel for her as she never vomits. She additionally has been running tachycardic and had slight elevation in body temperature. Of note, mom and younger sisters have all tested positive for COVID-19. Upon arrival to the ER, she was assessed for bowel obstruction, pneumonia, COVID-19. Found to be positive for COVID-19. No concern for bowel obstruction given gas pattern on imaging and passing gas from her colostomy. She had a slight fever, but labs otherwise within normal limits. Chest x-ray unremarkable for infiltrates versus atelectasis. No respiratory distress, stable on room air. Normotensive. Patient was admitted to isolation because of feeding intolerance, COVID-19 positive, and high risk for decompensation. On assessment this morning, she is afebrile, normotensive. Heart rate improved with fluid resuscitation. Still remains NPO. Stable on ambient air with saturations in the high 90s. Patient reportedly did well overnight with no concerns from nursing. Noted to have colostomy output of both gas and stool. Voiding independently (incontinent). No family at bedside, however spoke to mom after rounds and updated her on patient status and plan. Hospital Course Hospital Course: Patient was admitted, supportive care was given including zinc, vitamin C, vitamin D. Tube feeds were held until vomiting resolved and they were restarted gently over the next couple of days back to her regular rate. Overnight she has done well, has maintained good G-tube intake, regular medications have been given and she is not had any vomiting or fevers for the last 48 hours. Exam improved. Only development on her physical exam was a left heel ulcer that started is a couple small blisters and progressed to a fairly large heel ulcer from pressure. Patient will be discharged home today, we will initiate home health I examined patient in a [id number] fashion today and given her significant problems with quadriplegia she is unable to leave her home. She requires home health for wound care, PT/OT evaluation, G-tube feeding evaluation. Follow-up be per our regular office visits with her. We will continue vitamin D, vitamin C and zinc and her regular medications. Objective Vital signs: Temp Pulse Resp BP Pulse Ox 97.8 F 90 17 107/80 L 96 08/28/20 04:00 08/28/20 04:00 08/28/20 04:00 08/28/20 04:00 08/28/20 04:00 thin Comments: Patient is quadriplegic, thin, minimal contractures as previously noted. Is alert. - *Routine HEENT Exam Head: Present: normocephalic Eye: Present: EOMI, PERRL ENT: Present: mucous membranes moist - *Routine Respiratory Exam Present: CTA bilaterally - *Routine Cardiovascular Exam Present: RRR - *Routine Abdominal Exam Present: soft, normoactive bowel sounds, ostomy. Absent: tenderness Comments: G-tube site in place, infusing well. - *Routine Extremities Exam Absent: cyanosis, clubbing, edema Comments: Contracted extremities, significantly abnormal neurologic damage previously noted. Heel blister with no redness noted around the site. No evidence of denuding of the ulcer. - *Routine Skin Exam Present: warm, rash Results Labs on day of discharge: Labs from last 24 hours 08/28/20 08/28/20 04:50 04:50 WBC 4.4 L RBC 4.77 Hgb 14.3 Hct 42.7 MCV 89.7 MCH 30.1 MCHC 33.5 RDW 14.1 Plt Count 138 L MPV 9.3 Neut % (Auto) 58.4 Lymph % (Auto) 31.8 Wallace % (Auto) 8.5 Eos % (Auto) 0.7 Baso % (Auto) 0.7 Neut # (Auto) 2.6 Lymp
--- NOTE | 2020-08-28 09:38 | PC.NURSE ---
Called pts mom at this time r/t pt being d/cd. No ans at this time. [id number]. Also, spoke with care management and they are setting home health up, but stated she may still be d/cd.
--- NOTE | 2020-08-28 10:44 | PC.NURSE ---
Left Foot interior heel blister intact
--- NOTE | 2020-08-28 10:44 | PC.NURSE ---
Left Foot blister on interior side of fifth digit
--- NOTE | 2020-08-28 10:45 | PC.NURSE ---
Left foot blister anterior view
--- NOTE | 2020-08-28 14:59 | SW/DCPLANNER ---
RECEIVED REFERRAL FOR THIS PATIENT FOR HOME HEALTH PT/OT GTUBE FEEDING EVALUATION AND WOUND CARE... REFERRAL WAS GIVEN TO [facility] WHEN [facility] PER CHOICE COULDN'T TAKE PATIENT BECAUSE OF HER INSURANCE AND SINCE PATIENT WAS POSITIVE FOR COVID THEY CAN NOT SEE HER UNTIL SEP 02 WHEN SHE COMES OUT OF QUARANTINE... I HAVE ASKED THE HOME HEALTH NURSE TO ENCOURAGE MOTHER OF PATIENT TO CALL THE OFFICE IF THE HEEL SHOULD BE WORSE AND NEED MEDICAL ATTENTION...
== END 2020-08-28 11:10 | disposition home health service (06) | DRG 177 ==
LOC: ER 20:20 → ICU 08-25 12:56
PROVIDERS: Admitting Provider Internal Medicine Adolescent Medicine; Emergency Provider Emergency Medicine; PCP Internal Medicine Adolescent Medicine; Visit Provider Internal Medicine Adolescent Medicine
DX: U07.1 COVID-19 (principal); G82.50 Quadriplegia, unspecified; Z93.1 Gastrostomy status; Z93.3 Colostomy status; Z87.820 Personal history of traumatic brain injury; Z74.01 Bed confinement status; E03.9 Hypothyroidism, unspecified; G40.909 Epilepsy, unspecified, not intractable, without status epilepticus; L89.622 Pressure ulcer of left heel, stage 2
CPT/HCPCS: 71045; 80048; 80053; 81001; 83735; 84100; 84145; 84702; 85025; 86140; 87040; 87581; 87633; 87798; 96365; 96375; 99285; J0456; J2405

== ENCOUNTER → 2020-09-30 08:29 | Outpatient (CLI) | payer MEDICAID, SELFPAY ==
--- NOTE | 2020-09-30 08:34 | XR_ITS ---
PROCEDURE: XR FOOT WT BEARING RT 3V CLINICAL INDICATION: comparison views COMPARISON: No exams were available for comparison FINDINGS: There is extension of the great toe. No fracture or dislocation. No lytic or blastic change. The joint spaces are well-preserved. No significant degenerative/arthritic changes. No erosive changes evident. Other findings:None. IMPRESSION: Hyperextension of the great toe otherwise negative Dictated by: Yousuf Nguyen MD 09/30/2020 10:25 Yousuf Nguyen MD in [facility] 09/30/2020 10:25
--- NOTE | 2020-09-30 08:34 | XR_ITS ---
PROCEDURE: XR FOOT WT BEARING LT 3V CLINICAL INDICATION: wound to left heel Pain COMPARISON: No exams were available for comparison FINDINGS: No fracture or dislocation. No lytic or blastic change. There is normal mineralization. The joint spaces are well-preserved. No significant degenerative/arthritic changes. No erosive changes evident. Other findings:No bony destructive process evident. No soft tissue gas or radiopaque foreign body. IMPRESSION: No acute findings. Dictated by: Yousuf Nguyen MD 09/30/2020 10:26 Yousuf Nguyen MD in [facility] 09/30/2020 10:26
[2020-09-30 10:38] LABS: Basophils % 0.4 % (0.1-2.0); Eosinophils # 0.1 K/mm3 (0.0-0.4); Eosinophils % 1.1 % (0.1-12.0); Hematocrit 43.6 % (37.0-47.0); Hemoglobin 14.4 g/dL (12.2-16.2); Lymphocytes % 29.2 % (10-50); Mean Corpuscular HGB Conc 33.1 g/dL (31.8-35.4); Mean Corpuscular Hemoglobin 30.3 pg (27.0-31.2); Mean Corpuscular Volume 91.6 fl (81-99); Mean Platelet Volume 9.9 fl (7.4-10.4); Monocytes # 0.4 K/mm3 (0.1-1.0); Monocytes % 6.6 % (1.7-9.3); Neutrophils # 4.2 K/mm3 (1.8-7.8); Neutrophils % 62.7 % (37.0-80.0); Platelet Count 180 K/mm3 (142-424); Red Blood Count 4.76 M/mm3 (4.20-5.40); Red Cell Distribution Width 14.5 % (11.5-17.5); White Blood Count 6.8 K/mm3 (4.8-10.8)
[2020-09-30 10:48] LABS: Chloride 102 mmol/L (98-107); Potassium 4.2 mmoL/L (3.5-5.1); Sodium 142 mmol/L (136-145)
[2020-09-30 10:51] LABS: Alanine Aminotransferase 53 U/L (12-78); Albumin Level 4.7 g/dl (3.5-5.0); Albumin/Globulin Ratio 1.4 (1.1-1.8); Alkaline Phosphatase 64 U/L (38-126); Anion Gap 13.2 mEq/L (5-15); Aspartate Amino Transferase 31 U/L (14-36); Bilirubin,Total 0.3 mg/dl (0.2-1.3); Blood Urea Nitrogen 17 mg/dl (7-17); Carbon Dioxide 31 mmol/L (22.0-30.0); Estimated Glomerular Filt Rate 201 ml/min (>60); GFR (African American) 244 ML/MIN (>60); Globulin 3.3 g/dL (1.3-3.2); Glucose 97 mg/dl (74-100)
[2020-09-30 10:57] LABS: C-Reactive Protein 2.7 mg/L (0-4)
[2020-09-30 11:19] LABS: Erythrocyte Sedimentation Rate 21 mm/hr (0-20)
== END ==
PROVIDERS: PCP Internal Medicine Adolescent Medicine; Visit Provider Podiatrist
DX: S90.822A Blister (nonthermal), left foot, initial encounter (principal); Z51.89 Encounter for other specified aftercare
CPT/HCPCS: 36415; 73630; 80053; 85025; 85651; 86140

== ENCOUNTER → 2023-08-17 07:58 | Outpatient (CLI) | payer MEDICAID, SELFPAY ==
[2023-08-17 11:53] VITALS: BMI 21.9
== END ==
PROVIDERS: PCP Internal Medicine Adolescent Medicine; Visit Provider Nurse Practitioner Family
DX: Z71.3 Dietary counseling and surveillance (principal); Z93.1 Gastrostomy status
CPT/HCPCS: 97802